=== PATIENT | male | born 1970 | race Caucasian/White ===

== ENCOUNTER 2017-10-20 13:54 | Emergency (ER) | payer SELFPAY ==
[~2017-10-20] VITALS: Ht 175.3 cm; Wt 86.0 kg
[~2017-10-20 13:54] MED LIST: IBUP800T23 PO; PERC10TA27 PO
[2017-10-20 14:30] VITALS: BP 137/84; PULSE 92; RESP 16; TEMP 97.6; O2SAT 100
--- NOTE | 2017-10-20 14:41 | PD ---
HPI Chief Complaint: Respiratory Symptoms Time Seen by Provider: 14:28 Travel History International Travel<30 days: No Contact w/Intl Traveler<30days: No Traveled to known affect area: No History of Present Illness HPI This patient complains of cough and congestion. Duration 3 days. Severity is moderate. Whenever he coughs he gets a brief burning in his chest that resolves. As soon as he coughs it returns. It is readily reproducible with a cough. He denies having GI or stomach ulcer problems. No Documented fever. However, he felt like he might of had a fever yesterday. No alleviating factors. No exacerbating factors PFSH Past Medical History Anxiety: Yes Depression: Yes Diminished Hearing: No Past Surgical History Appendectomy: Yes Social History Alcohol Use: Yes (OCCASIONALLY) Tobacco Use: No Substance Use: No Allergies-Medications (Allergen,Severity, Reaction): Coded Allergies: No Known Allergies (Verified , 06/28/14) Reported Meds & Prescriptions Reported Meds & Active Scripts Active Ventolin Hfa 18 GM Inh (Albuterol Sulfate) 90 Mcg/Act Aer 2 Puff INH Q4-6H PRN Review of Systems General / Constitutional: No: Fever Eyes: No: Visual changes HENT: Positive: Congestion, No: Headaches Cardiovascular: Positive: Chest Pain or Discomfort Respiratory: Positive: Cough, No: Shortness of Breath Gastrointestinal: No: Abdominal Pain Genitourinary: No: Dysuria Musculoskeletal: No: Pain Skin: No Rash Neurologic: No: Weakness Psychiatric: No: Depression Endocrine: No: Polydipsia Hematologic/Lymphatic: No: Easy Bruising Physical Exam Narrative GENERAL: Well-nourished, well-developed patient in no apparent distress. SKIN: Focused skin assessment reveals no rash and nodules. Skin is Warm and dry. HEAD: Atraumatic. Normocephalic. EYES: Pupils equal and round. No scleral icterus. No injection or drainage. ENT: No nasal bleeding or discharge. Mucous membranes pink and moist. NECK: Trachea midline. No JVD. CARDIOVASCULAR: Regular rate and rhythm. No murmur appreciated. RESPIRATORY: No accessory muscle use. Clear to auscultation. Breath sounds equal bilaterally. GASTROINTESTINAL: Abdomen soft, non-tender, nondistended. Hepatic and splenic margins not palpable. MUSCULOSKELETAL: No obvious deformities. No clubbing. No cyanosis. No edema. NEUROLOGICAL: Awake and alert. No obvious cranial nerve deficits. Motor grossly within normal limits. Normal speech. PSYCHIATRIC: Appropriate mood and affect; insight and judgment normal. Data Data Last Documented VS Vital Signs Date Time Temp Pulse Resp B/P (MAP) Pulse Ox O2 Delivery O2 Flow Rate FiO2 10/20/17 14:30 97.6 92 16 137/84 (101) 100 Orders Orders Chest, Single Ap (10/20/17 ) Lidocaine 2% Viscous (Xylocaine 2% Visco (10/20/17 14:45) Al-Mag Hy-Si 40-40-4 Mg/Ml Liq (Mag-Al P (10/20/17 14:45) MDM Medical Decision Making Medical Screen Exam Complete: Yes Emergency Medical Condition: Yes Medical Record Reviewed: Yes Differential Diagnosis Bronchitis, pneumonia, GERD Narrative Course I have reviewed the patient's electronic medical record. I reviewed his chest x-ray which is normal I reviewed his EKG which shows sinus rhythm and no ST elevation Given a trial of Maalox/lidocaine which helped for a bit Patient is having bronchitis and possibly some GERD This is noncardiac discomfort I wrote him an inhaler to use as needed No indication for antibiotics Recommend some Prilosec or Zantac and follow-up with primary care Diagnosis Primary Impression: Acute viral bronchitis Additional Impression: Dyspepsia Additional Instructions: The patient was advised to follow up with their physician and return if they worsen. Recommending a trial of either Prilosec or Zantac which are [id number] medications Med/Other Pt SpecificInfo: Prescription(s) given Scripts Albuterol 18 GM Inh (Ventolin Hfa 18 GM Inh) 90 Mcg/Act Aer 2 PUFF INH Q4-6H Y for SHORTNESS OF BREATH, #1 INHALER 0 Refills Prov: Dar Wolff MD 10/20/17 Disposition: 01 DISCHARGE HOME Condition: Stable Dar Wolff MD Oct 20, 2017 14:41
[2017-10-20] MEDS ORDERED: ALUMINUM/MAGNESIUM/SIMETH 30 ML CUP PO ONE (14:45)
[2017-10-20] MEDS ORDERED: LIDOCAINE VISCOUS 2% SOLN 15 ML UDC PO ONE (14:45)
--- NOTE | 2017-10-20 15:30 | RADRPT ---
EXAM DATE/TIME: 10/20/2017 14:39 [facility] COMPARISON: No previous studies available for comparison. INDICATIONS : Cough and short of breath. MEDICAL HISTORY : None. SURGICAL HISTORY : None. ENCOUNTER: Initial ACUITY: 4 - 6 days PAIN SCORE: 8/10 LOCATION: Bilateral chest FINDINGS: A single view of the chest demonstrates the lungs to be symmetrically aerated without evidence of mas s, infiltrate or effusion. The cardiomediastinal contours are unremarkable. Osseous structures are intact. CONCLUSION: 1. No acute cardiopulmonary disease. Good Murray MD on October 20, 2017 at 15:28 Board Certified Radiologist. This report was verified electronically.
[2017-10-20] MEDS ORDERED: VENTAER INH (15:34)
--- NOTE | 2017-10-21 14:00 | EKG ---
Date Performed: 10/20/2017 Time Performed: 14:11:26 PTAGE: 47 years EKG: Sinus rhythm WITH SINUS ARRHYTHMIA NORMAL ECG Compared to PREVIOUS TRACING the sinus tachycardia and the minimal nonspecific ST T wave changes hav e resolved PREVIOUS TRACIN03/08/2008 22.02 DOCTOR: Page Wolf Interpretating Date/Time 10/21/2017 13:53:34
== END 2017-10-20 15:58 | disposition home or self-care (01) ==
LOC: PHED 13:54
DX: J20.8 Acute bronchitis due to other specified organisms (principal); R10.13 Epigastric pain
CPT/HCPCS: 71045; 93005; 99284